=== PATIENT | male | born 1965 | race Two or more races ===

== ENCOUNTER → 2024-05-10 | Day surgery (SDC) | payer OTHER ==
[2024-05-02 09:58] VITALS: BP 130/80
[~2024-05-10] VITALS: Ht 170.2 cm; Wt 73.5 kg
[~2024-05-10] MED LIST: CIPROFLOXACIN IN 5 % DEXTROSE 400 MG/200 ML PIGGYBAG IV ONE; COZAAR50 MG PO; LEVO-T50 MCG PO; MORPHINE SULFATE 4 MG/ML VIAL IV ONE
== END | disposition home or self-care (01) ==
LOC: ADM 05-03 12:15 → CIR.AMB 05:14
PROVIDERS: ATTEND Surgery
DX: K43.6 Other and unspecified ventral hernia with obstruction, without gangrene (principal); Z88.0 Allergy status to penicillin; I10 Essential (primary) hypertension; E03.9 Hypothyroidism, unspecified
CPT/HCPCS: 49594; C1781